=== PATIENT | female | born 1950 | race Caucasian/White ===

== ENCOUNTER 2020-01-28 20:29 | Emergency (ER) | payer OTHER ==
[~2020-01-28] VITALS: Ht 160 cm; Wt 70.8 kg
[2020-01-28 20:40] VITALS: Ht 160 cm; Wt 70.8 kg
[2020-01-28 22:06] VITALS: BP 125/72
== END 2020-01-28 22:06 | disposition home or self-care (01) ==
LOC: ED 20:29
DX: S81.852A Open bite, left lower leg, initial encounter (principal); W54.0XXA Bitten by dog, initial encounter; Y93.89 Activity, other specified; Y92.89 Other specified places as the place of occurrence of the external cause; Y99.8 Other external cause status
CPT/HCPCS: 90715; J1885